=== PATIENT | female | born 1995 | race Caucasian/White ===

== ENCOUNTER 2020-05-05 17:10 | Emergency (ER) | payer OTHER, SELFPAY ==
[2020-05-05 17:26] VITALS: BP 128/76; PULSE 75; RESP 17; TEMP 36.7; O2SAT 100
--- NOTE | 2020-05-05 20:28 | ED.BACK ---
HPI - Back Pain/Injury General Chief Complaint: Back Pain/Injury <Lorenza Grajeda PA-C - Last Filed: 05/05/20 20:38> Stated Complaint: Pulled muscle in back <Lorenza Grajeda PA-C - Last Filed: 05/05/20 20:38> Time Seen by Provider: 05/05/20 20:01 <Lorenza Grajeda PA-C - Last Filed: 05/05/20 20:38> Source: patient <ROSHAN Chavez Last Filed: 05/05/20 20:38> Mode of arrival: ambulatory <Lorenza Grajeda PA-C - Last Filed: 05/05/20 20:38> Limitations: no limitations <Lorenza Grajeda PA-C - Last Filed: 05/05/20 20:38> History of Present Illness HPI Narrative: This is a 25 year old female that presents to the ER for right sided low back pain since last night. Reports she was shoveling snow and twisted her back when she was lifting the last pile of snow. Reports since she has had pain in the low back. Worse with movement and relieved with rest. She took Ibuprofen and Tylenol with some relief. Denies fever, saddle anesthesia, bowel/bladder incontinence, weakness, or numbness. <Lorenza Grajeda PA-C - Last Filed: 05/05/20 20:38> Related Data Allergies/Adverse Reactions: Allergies Allergy/AdvReac Type Severity Reaction Status Date / Time No Known Allergies Allergy Verified 05/05/20 20:36 <ROSHAN Chavez Last Filed: 05/05/20 20:38> Review of Systems Review of Systems: Narrative: CONSTITUTIONAL: Denies fever SKIN: Denies rash MUSCULOSKELETAL: Reports back pain, joint pain, and myalgia. NEUROLOGIC: Denies numbness, or weakness. <ROSHAN Chavez Last Filed: 05/05/20 20:38> All systems reviewed & are unremarkable except as noted in HPI and below <Lorenza Grajeda PA-C - Last Filed: 05/05/20 20:38> [facility] Past Medical History Medical History: Medical History (Updated 05/05/20 @ 20:34 by Lorenza Grajeda PA-C) No active medical problems <Lorenza Grajeda PA-C - Last Filed: 05/05/20 20:38> Social History Social History: Social History (Updated 05/05/20 @ 20:31 by Lorenza Grajeda PA-C) Substance use: never Gender identity (if verbalized by the patient): Female <Lorenza Grajeda PA-C - Last Filed: 05/05/20 20:38> Exam Narrative: Exam Narrative: GENERAL: Well-appearing, well-nourished, and in no acute distress. HEAD: Normocephalic, atraumatic. EYES: EOMI. CHEST: Clear to auscultation. No respiratory distress. No wheezes rales or rhonchi HEART: Regular rate and rhythm. No murmur heard. Normal peripheral pulses. BACK: No midline spinal tenderness EXTREMITIES: Normal range of motion. No edema. Strength equal in bilateral lower extremities (5/5). Normal patellar reflexes. Normal DP pulses SKIN: Warm, dry, no rash. NEURO: No focal deficits. Alert and oriented x3. PSYCH: Normal mood and affect <Lorenza Grajeda PA-C - Last Filed: 05/05/20 20:38> Course Vital Signs Vital signs: Vital Signs Temperature 36.7 C 05/05/20 17:26 Pulse Rate 75 05/05/20 17:26 Respiratory Rate 17 05/05/20 17:26 Blood Pressure 128/76 05/05/20 17:26 Pulse Oximetry 100 05/05/20 17:26 Temperature 36.7 C 05/05/20 17:26 Pulse Rate 75 05/05/20 17:26 Respiratory Rate 17 05/05/20 17:26 Blood Pressure 128/76 05/05/20 17:26 Pulse Oximetry 100 05/05/20 17:26 <Lorenza Grajeda PA-C - Last Filed: 05/05/20 20:38> Vital Signs Temperature 36.7 C 05/05/20 17:26 Pulse Rate 75 05/05/20 17:26 Respiratory Rate 17 05/05/20 17:26 Blood Pressure 128/76 05/05/20 17:26 Pulse Oximetry 100 05/05/20 17:26 Temperature 36.7 C 05/05/20 17:26 Pulse Rate 75 05/05/20 17:26 Respiratory Rate 17 05/05/20 17:26 Blood Pressure 128/76 05/05/20 17:26 Pulse Oximetry 100 05/05/20 17:26 <Roni Swift MD - Last Filed: 05/05/20 21:36> MDM - Back Pain/Injury MDM Narrative Medical decision making narrative: Patient presents the emergency department for history and exam consistent with muscle str
[2020-05-05] MEDS: ACETAMINOPHEN 500 MG TABLET 1000 MG PO (20:36)
[2020-05-05] MEDS: KETOROLAC (*BKC) 60 MG/2 ML VIAL IM (20:36)
[2020-05-05] MEDS: diazePAM INJ (*CRX) 10 MG/2 ML SYRINGE 5 MG IM (20:36)
== END 2020-05-05 21:11 | disposition home or self-care (01) ==
PROVIDERS: Emergency Provider Emergency Medicine
DX: S39.012A Strain of muscle, fascia and tendon of lower back, initial encounter (principal); X50.0XXA Overexertion from strenuous movement or load, initial encounter; Y93.H1 Activity, digging, shoveling and raking
CPT/HCPCS: 96372; 99284; A9270; J1885; J3360